=== PATIENT | female | born 1975 | race African-American/Black ===

== ENCOUNTER → 2016-10-16 | Outpatient (CLI) | payer BC ==
[~2016-10-16] MED LIST: HYDROCHLOROTHIA25 MG PO; METOPROLOL SUCC25 MG PO; VITAL-D RX TABL1 TAB PO; ZOVIRAX200 MG/5 M PO
--- NOTE | ~2016-10-16 | US77 ---
[facility] A Service of [facility] RADIOLOGY TEXT RESULTS PATIENT: EMERSON DELUNA LOCATION: [facility] : 71 UNIT #: [id number] AGE: [address]: Luís Mayberry MD SEX: F ORDER DR: [id number] [facility] [address], [place] [address] [id number] O MR#: [id number] Acc #: [id number] NAME: EMERSON DELUNA : 1975 SEX: F STUDY DATE/TIME: 10/16/2016 14:08 UNIT: CGUS ROOM: STUDY DESCRIPTION: US Kidney Bilateral Complete Attending Physician: Luís Mayberry M.D. Referring Physician: Luís Mayberry M.D. Ordering Physician: Luís Mayberry M.D. Primary Care Physician: Alicja Navarro M.D. MEDICAL IMAGING REPORT This report is preliminary unless electronic signature is present EXAM Renal ultrasound INDICATION Renal insufficiency. Creatinine 1.5. PROCEDURE Donovan-scale and Doppler imaging of the kidneys and bladder. COMPARISON None FINDINGS Right kidney measures 11.2 cm. No hydronephrosis. Cortical thickness is 9.0 mm. Unremarkable bladder. Left kidney measures 11.2 cm. Cortical thickness within normal limits. No hydronephrosis. IMPRESSION Very mild cortical thinning in the right kidney may represent early changes of chronic renal disease. Otherwise negative renal ultrasound. Dictated by... Anthony Aguirre M.D. THIS IS AN ELECTRONICALLY VERIFIED REPORT Anthony Aguirre M.D. at 10/17/2016 9:39 AM JELENA/[place] TD: 10/16/2016 14:39 JOB #: [id number] MEDICAL IMAGING REPORT [facility] A Service of [facility] RADIOLOGY TEXT RESULTS PATIENT: EMERSON DELUNA LOCATION: [facility] : 71 UNIT #: [id number] AGE: [address]: Luís Mayberry MD SEX: F ORDER DR: Page 1 of 1 COPY
== END | disposition home or self-care (01) ==
LOC: CGUS 13:41
DX: N28.9 Disorder of kidney and ureter, unspecified (principal)
CPT/HCPCS: 76770